=== PATIENT | female | born 1995 | race Two or more races ===

== ENCOUNTER 2018-06-04 11:05 | Observation (INO) | payer MEDICAID ==
[~2018-06-04] VITALS: Ht 152.4 cm; Wt 89.8 kg
[2018-06-04] MEDS ORDERED: BETAMETHASONE ACET (6MG/ML) 5ML VIAL IM ONE (11:45)
[2018-06-04] MEDS ORDERED: NIF10C PO (12:09)
[2018-06-04] MEDS ORDERED: PREN-96 PO (12:09)
== END 2018-06-04 12:05 | disposition home or self-care (01) | DRG 563 ==
LOC: LDRP 11:05
PROVIDERS: ADMIT Specialist; ATTEND Specialist
DX: O60.03 Preterm labor without delivery, third trimester (principal); Z3A.34 34 weeks gestation of pregnancy
CPT/HCPCS: 59025; 81002; 96372; G0378; J0702

== ENCOUNTER 2018-06-05 13:55 | Observation (INO) | payer MEDICAID ==
[~2018-06-05 13:55] MED LIST: NIF10C PO; PREN-96 PO
[2018-06-05] MEDS ORDERED: BETAMETHASONE ACET (6MG/ML) 5ML VIAL IM ONE (14:30)
== END 2018-06-05 15:12 | disposition home or self-care (01) | DRG 563 ==
LOC: LDRP 13:55
PROVIDERS: ADMIT Specialist; ATTEND Specialist
DX: O60.03 Preterm labor without delivery, third trimester (principal); Z3A.34 34 weeks gestation of pregnancy
CPT/HCPCS: 59025; 81002; 96372; G0378

== ENCOUNTER 2018-06-11 13:10 | Observation (INO) | payer MEDICAID ==
[~2018-06-11 13:10] MED LIST changes: -PREN-96 PO
== END 2018-06-11 15:25 | disposition home or self-care (01) | DRG 566 ==
LOC: LDRP 13:10
PROVIDERS: ADMIT Obstetrics & Gynecology; ATTEND Obstetrics & Gynecology
DX: O26.873 Cervical shortening, third trimester (principal); O60.03 Preterm labor without delivery, third trimester; O26.893 Other specified pregnancy related conditions, third trimester; R11.0 Nausea; Z3A.35 35 weeks gestation of pregnancy
CPT/HCPCS: 59025; 76815; 81002; G0378

== ENCOUNTER 2018-07-04 18:53 | Observation (INO) | payer MEDICAID | END 2018-07-04 19:56 | disposition home or self-care (01) | DRG 566 | LOC: LDRP 18:53 | PROVIDERS: ADMIT Obstetrics & Gynecology; ATTEND Obstetrics & Gynecology | DX: O62.9 Abnormality of forces of labor, unspecified (principal); Z3A.39 39 weeks gestation of pregnancy | CPT/HCPCS: 59025; 81002; G0378 ==

== ENCOUNTER 2019-09-08 17:45 | Emergency (ER) | payer MEDICAID ==
[~2019-09-08] VITALS: Ht 152.4 cm; Wt 83.9 kg
[2019-09-08 22:28] VITALS: BP 124/74
== END 2019-09-08 22:29 | disposition home or self-care (01) ==
LOC: ER 17:45
DX: N83.201 Unspecified ovarian cyst, right side (principal); Z32.02 Encounter for pregnancy test, result negative
CPT/HCPCS: 76856; 81002; 81025